=== PATIENT | male | born 1995 | race Caucasian/White ===

== ENCOUNTER 2016-12-02 17:35 | Emergency (ER) | payer OTHER ==
[~2016-12-02] VITALS: Ht 177.8 cm; Wt 66.0 kg
[2016-12-02 17:39] VITALS: Ht 177.8 cm; Wt 66.0 kg
[2016-12-02] MEDS ORDERED: SODIUM CHLORIDE 0.9% 1000ML 1,000 ML IV STA (17:48)
--- NOTE | 2016-12-02 17:49 | EMERGENCY ROOM VISIT NOTE ---
History Report prepared by Anna: Verena Vyas Under the Supervision of: Dr. Lazaro Medina D.O. First contact with patient: 17:42 Chief Complaint: CARDIAC ASSESSMENT Stated Complaint: CHEST PAIN Nursing Triage Summary: Pt c/o "a lot of PVC's...it's hard to breath" Symptoms for 2 hours. History of Present Illness The patient is a 21 year old male who presents to the Emergency Room with complaints of persistent palpitations. The patient states he started having episodes of palpitations earlier this afternoon. He states that he was at work when they started in the became worse when he was going home from work. He notices a skipping sensation with his heart. Intermittently it will also race. He denies having any chest pain or shortness of breath. The patient was started on medications for this and states he took a dose of the medication he was told to take by his doctor in the symptoms improved. He denies having any nausea or vomiting. He denies having any syncope or dizziness. He denies having any headaches fevers or chills. He states he has not been ill recently. He states that he did not have anything to eat today while he was at work and thinks that this could be part of the problem. At this time he states his symptoms are significantly improved. He states that he has had a full workup for this in the past and no definite cause was found. Source of History: patient Onset: 2 hours ago Position: chest Quality: other (palpitations ) Timing: other (persistent) Associated Symptoms: No SOB, No chest pain, No chills, No fevers, No headache, No nausea, No vomiting Note: He denies syncope. Review of Systems See HPI for pertinent positives & negatives. A total of 10 systems reviewed and were otherwise negative. Past Medical & Surgical Medical Problems: (1) Asthma, Unspecified (2) Esophageal Reflux Family History Patient reports no known family medical history. Social History Smoking Status: Never Smoker Smokeless Tobacco Use: No Alcohol Use: none Drug Use: none Marital Status: single Housing Status: lives with family Occupation Status: [employer] student Current/Historical Medications No Active Prescriptions or Reported Meds Allergies Coded Allergies: Cat Dander (Unverified Allergy, Mild, 10/07/16) Physical Exam Vital Signs Date Time Temp Pulse Resp B/P Pulse Ox O2 Delivery O2 Flow Rate FiO2 12/02/16 19:18 37.4 60 12 122/57 100 12/02/16 19:16 60 12 122/57 100 Room Air 12/02/16 18:28 61 12 100 Room Air 12/02/16 18:09 96 Room Air 12/02/16 18:05 99 Room Air 12/02/16 18:05 99 Room Air 12/02/16 18:00 85 12/02/16 17:41 99 Room Air 12/02/16 17:39 37.4 92 18 131/58 99 Room Air Physical Exam GENERAL: Patient is awake alert in no acute distress patient is resting comfortably and showing no signs of anxiety EYES: The conjunctivae are clear. The pupils are round and reactive. EARS, NOSE, MOUTH AND THROAT: The nose is without any evidence of any deformity. Mucous membranes are moist tongue is midline NECK: The neck is nontender and supple. RESPIRATORY: Normal respiratory effort is noted there is no evidence of wheezing rhonchi or rales CARDIOVASCULAR: Regular rate and rhythm noted there no murmurs rubs or gallops normal S1 normal S2 GASTROINTESTINAL: The abdomen is soft. Bowel sounds are present in all quadrants. Abdomen is nontender MUSCULOSKELETAL/EXTREMITIES: There is no evidence of gross deformity full range of motion is noted in the hips and shoulders SKIN: There is no obvious evidence of any rash. There are no petechiae, pallor or cyanosis noted. NEUROLOGIC: Patient is awake alert and oriented x3 strength is symmetric patellar reflexes are 2+ bilaterally Medical Decision & Procedures ER Provider Diagnostic Interpretation: X-ray results as stated below per interpretation by me and the radiologist. CHEST ONE VIEW PORTABLE CLINICAL HISTORY: Atypical chest pain COMPARISON STUDY: 10/07/2016 FINDINGS: The cardiac and mediastinal contours are normal. There is no evidence of focal pulmonary consolidation. There is no evidence of failure. No pleural effusions are visualized.[ IMPRESSION: No active disease in the chest. Electronically signed by: Oswaldo Valdes M.D. 12/02/2016 6:03 PM Dictated Date/Time: 12/02/2016 6:03 PM Laboratory Results 12/02/16 18:05 Red Blood Count 5.13, Mean Corpuscular Volume 88.3, Mean Corpuscular Hemoglobin 31.4, Mean Corpuscular Hemoglobin Concent 35.5, Mean Platelet Volume 8.1, Neutrophils (%) (Auto) 74.2, Lymphocytes (%) (Auto) 19.8, Monocytes (%) (Auto) 4.6, Eosinophils (%) (Auto) 0.9, Basophils (%) (Auto) 0.5, Neutrophils # (Auto) 4.84, Lymphocytes # (Auto) 1.29, Monocytes # (Auto) 0.30, Eosinophils # (Auto) 0.06, Basophils # (Auto) 0.03 12/02/16 18:05 Test 12/02/16 18:05 White Blood Count 6.52 K/uL (4.8-10.8) Red Blood Count 5.13 M/uL (4.7-6.1) Hemoglobin 16.1 g/dL (14.0-18.0) Hematocrit 45.3 % (42-52) Mean Corpuscular Volume 88.3 fL (80-100) Mean Corpuscular Hemoglobin 31.4 pg (25-34) Mean Corpuscular Hemoglobin Concent 35.5 g/dl (32-36) Platelet Count 326 K/uL (130-400) Mean Platelet Volume 8.1 fL (7.4-10.4) Neutrophils (%) (Auto) 74.2 % Lymphocytes (%) (Auto) 19.8 % Monocytes (%) (Auto) 4.6 % Eosinophils (%) (Auto) 0.9 % Basophils (%) (Auto) 0.5 % Neutrophils # (Auto) 4.84 K/uL (1.4-6.5) Lymphocytes # (Auto) 1.29 K/uL (1.2-3.4) Monocytes # (Auto) 0.30 K/uL (0.11-0.59) Eosinophils # (Auto) 0.06 K/uL (0-0.5) Basophils # (Auto) 0.03 K/uL (0-0.2) RDW Standard Deviation 39.3 fL (36.4-46.3) RDW Coefficient of Variation 12.3 % (11.5-14.5) Immature Granulocyte % (Auto) 0.0 % Immature Granulocyte # (Auto) 0.00 K/uL (0.00-0.02) Anion Gap 9.0 mmol/L (3-11) Est Creatinine Clear Calc Drug Dose 111.1 ml/min Estimated GFR () 126.5 Estimated GFR (Non- 109.2 BUN/Creatinine Ratio 6.3 (10-20) Calcium Level 9.3 mg/dl (8.5-10.1) Magnesium Level 2.4 mg/dl (1.8-2.4) Total Bilirubin 0.6 mg/dl (0.2-1) Direct Bilirubin 0.1 mg/dl (0-0.2) Aspartate Amino Transf (AST/SGOT) 9 U/L (15-37) Alanine Aminotransferase (ALT/SGPT) 17 U/L (12-78) Alkaline Phosphatase 97 U/L (45-117) Troponin I < 0.015 ng/ml (0-0.045) Total Protein 8.3 gm/dl (6.4-8.2) Albumin 4.6 gm/dl (3.4-5.0) Lipase 96 U/L (73-393) Thyroid Stimulating Hormone (TSH) 0.826 uIu/ml (0.300-4.500) Free Thyroxine 0.99 ng/dl (0.80-1.60) Laboratory results per my review. Medications Administered Medications (Trade) Dose Ordered Sig/Eliseo Route Start Time Stop Time Status Last Admin Dose Admin Sodium Chloride (Nss 1000ml) 1,000 ml @ 999 mls/hr Q1H1M STAT IV 12/02/16 17:48 12/02/16 18:48 DC 12/02/16 18:04 999 MLS/HR ECG Indication: chest pain Rate (beats per minute): 81 Rhythm: normal sinus Findings: RBBB (incomplete), no ectopy, other (no acute ST segment abnormalities ) Comparison ECG Date: October 07, 2016 Change: no significant change ED Course 1743: The patient was evaluated in room C6. A complete history and physical examination were performed. 1743: NSS 1,000 ml @ 999 mls/hr IV 1857: Upon reevaluation, the patient is doing well. I discussed the results and treatment plan with the patient. He verbalized agreement of the treatment plan. The patient was discharged home. Medical Decision Prior records/ancillary studies reviewed. Triage Nursing notes reviewed. The patient's history was concerning for palpitations. Differential diagnosis: Etiologies such as premature contractions, electrolyte abnormality, cardiac dysrhythmia, thyroid dysfunction, pulmonary embolism, infection, gastrointestinal, as well as others were entertained. The patient is a 21-year-old male who presented to the emergency department for an evaluation of palpitations. The patient has a history of PVCs. He takes medications for PVCs. He took the medication helped his symptoms significantly. Symptoms were essentially resolved upon arrival to the emergency department. I discussed the patient's laboratory and radiographic studies with him. He was treated with IV fluids in the emergency department. On subsequent reevaluation he was feeling much better. The patient was encouraged to rest and avoid any strenuous activity. He was also encouraged to continue all medications as prescribed. Is also encouraged return the emergency Department immediately if symptoms change worsen or the need arises. Otherwise she was encouraged to follow-up with his primary care physician to discuss the possibility that he may require further studies such as an echocardiogram or a Holter monitor to further evaluate the cause of the symptoms. Impression Primary Impression: Palpitations Additional Impression: PVCs (premature ventricular contractions) Scribe Attestation The scribe's documentation has been prepared under my direction and personally reviewed by me in its entirety. I confirm that the note above accurately reflects all work, treatment, procedures, and medical decision making performed by me. Departure Information Dispostion Home / Self-Care Prescriptions No Active Prescriptions or Reported Meds Referrals No Doctor, Assigned (PCP) Forms IMPORTANT VISIT INFORMATION, Work Instructions Patient Instructions ED Palpitations, My [facility] [address] Additional Instructions Continue all medications as prescribed. Follow-up with your family doctor for further evaluation. You may require an echocardiogram or a Holter monitor to further evaluate causing her palpitations. Return to emergency department immediately symptoms change worsen or the need arises. Problem Qualifiers
--- NOTE | 2016-12-02 18:04 | DIAGNOSTIC IMAGING REPORT ---
CHEST ONE VIEW PORTABLE CLINICAL HISTORY: Atypical chest pain COMPARISON STUDY: 10/07/2016 FINDINGS: The cardiac and mediastinal contours are normal. There is no evidence of focal pulmonary consolidation. There is no evidence of failure. No pleural effusions are visualized.[ IMPRESSION: No active disease in the chest. Electronically signed by: Oswaldo Valdes M.D. 12/02/2016 6:03 PM Dictated Date/Time: 12/02/2016 6:03 PM
[2016-12-02 18:05] VITALS: O2SAT 99
[2016-12-02 18:13] LABS: BASO % 0.5 %; BASO ABS # 0.03 K/uL (0-0.2); COMPLETE YES; EOS % 0.9 %; HEMATOCRIT 45.3 % (42-52); LYMPH % 19.8 %; LYMPH ABS # 1.29 K/uL (1.2-3.4); MEAN CELL VOLUME 88.3 fL (80-100); MEAN CORPUSCULAR HEMOGLOBIN 31.4 pg (25-34); MEAN CORPUSCULAR HGB CONC 35.5 g/dl (32-36); MEAN PLATELET VOLUME 8.1 fL (7.4-10.4); MONO % 4.6 %; NEUT % 74.2 %; PLATELET COUNT 326 K/uL (130-400); RED BLOOD COUNT 5.13 M/uL (4.7-6.1); WHITE BLOOD COUNT 6.52 K/uL (4.8-10.8)
[2016-12-02 18:30] LABS: ALT/SGPT 17 U/L (12-78); AST/SGOT 9 U/L (15-37); BLOOD UREA NITROGEN 6 mg/dl (7-18); BUN/CREATININE RATIO 6.3 (10-20); CALCIUM 9.3 mg/dl (8.5-10.1); CARBON DIOXIDE 29 mmol/L (21-32); CHLORIDE 105 mmol/L (98-107); CREATININE 0.99 mg/dl (0.60-1.40); GLUCOSE 100 mg/dl (70-99); MAGNESIUM 2.4 mg/dl (1.8-2.4); POTASSIUM 3.7 mmol/L (3.5-5.1); SODIUM 143 mmol/L (136-145)
[2016-12-02 18:39] LABS: ALKALINE PHOSPHATASE 97 U/L (45-117); THYROID STIMULATING HORMONE 0.826 uIu/ml (0.300-4.500)
[2016-12-02 19:18] VITALS: BP 122/57; PULSE 60; TEMP 37.4; O2SAT 100
== END 2016-12-02 19:18 | disposition home or self-care (01) ==
LOC: C.EDB 17:37 → C.EDC 19:18
DX: R00.2 Palpitations (principal); I49.3 Ventricular premature depolarization; J45.909 Unspecified asthma, uncomplicated; K21.9 Gastro-esophageal reflux disease without esophagitis

== ENCOUNTER 2016-12-26 19:04 | Emergency (ER) | payer OTHER ==
[~2016-12-26] VITALS: Ht 177.8 cm; Wt 66.0 kg
[2016-12-26 19:10] VITALS: TEMP 37.1; Ht 177.8 cm; Wt 66.0 kg
--- NOTE | 2016-12-26 21:07 | DIAGNOSTIC IMAGING REPORT ---
CHEST ONE VIEW PORTABLE HISTORY: cough COMPARISON: Chest 12/02/2016. FINDINGS: The lungs are clear. Cardiac silhouette is normal in size. No pleural effusions. No pneumothorax. IMPRESSION: No acute process. Electronically signed by: Michael Solano M.D. 12/26/2016 9:06 PM Dictated Date/Time: 12/26/2016 9:05 PM
--- NOTE | 2016-12-26 21:11 | EMERGENCY ROOM VISIT NOTE ---
History First contact with patient: 20:39 Chief Complaint: CARDIAC ASSESSMENT Stated Complaint: HEAVY FEELING IN CHEST - NAUTIOUS History of Present Illness The patient is a 21 year old male who presents to the Emergency Room with complaints of 5 day hx of epigastric discomfort following meals. He denies quinton pain but he reports a "bubble" like sensation. The symptoms typically resolved after a few minutes. Patient decided to come into ED today because the discomfort was more intense. As of today he also reports associated nausea without vomiting. Pt denies headache, change in vision, fevers, chest pain, shortness of breath, diarrhea, pain with urination, and melena. Review of Systems See HPI for pertinent positives & negatives. A total of 10 systems reviewed and were otherwise negative. Past Medical/Surgical History Medical Problems: (1) Asthma, Unspecified (2) Esophageal Reflux Family History Patient reports no known family medical history. Social History Smoking Status: Never Smoker Alcohol Use: none Drug Use: none Marital Status: single Housing Status: lives with family Occupation Status: [employer] student Current/Historical Medications No Active Prescriptions or Reported Meds Allergies Coded Allergies: Cat Dander (Unverified Allergy, Mild, 12/26/16) Physical Exam Vital Signs Date Time Temp Pulse Resp B/P Pulse Ox O2 Delivery O2 Flow Rate FiO2 12/26/16 22:32 67 20 119/59 98 Room Air 12/26/16 20:44 63 12/26/16 19:12 100 Room Air 12/26/16 19:10 37.1 119 16 127/67 100 Room Air Physical Exam GENERAL: alert, well appearing, well nourished, no distress, non-toxic EYE EXAM: normal conjunctiva, PERRL and EOM's grossly intact NECK: supple, no nuchal rigidity, no adenopathy, non-tender LUNGS: Clear to auscultation. Normal chest wall mechanics HEART: no murmurs, S1 normal and S2 normal ABDOMEN: abdomen soft, non-tender, normo-active bowel sounds, no masses, no rebound or guarding. BACK: Back is symmetrical on inspection and there is no deformity, no midline tenderness, no CVA tenderness. SKIN: no rashes and no bruising UPPER EXTREMITIES: upper extremities are grossly normal. LOWER EXTREMITIES: No pitting edema. Medical Decision & Procedures Laboratory Results 12/26/16 21:05 Red Blood Count 5.13, Mean Corpuscular Volume 87.9, Mean Corpuscular Hemoglobin 31.0, Mean Corpuscular Hemoglobin Concent 35.3, Mean Platelet Volume 8.2, Neutrophils (%) (Auto) 65.9, Lymphocytes (%) (Auto) 26.6, Monocytes (%) (Auto) 4.9, Eosinophils (%) (Auto) 1.8, Basophils (%) (Auto) 0.5, Neutrophils # (Auto) 5.10, Lymphocytes # (Auto) 2.06, Monocytes # (Auto) 0.38, Eosinophils # (Auto) 0.14, Basophils # (Auto) 0.04 12/26/16 21:05 Test 12/26/16 21:05 White Blood Count 7.74 K/uL (4.8-10.8) Red Blood Count 5.13 M/uL (4.7-6.1) Hemoglobin 15.9 g/dL (14.0-18.0) Hematocrit 45.1 % (42-52) Mean Corpuscular Volume 87.9 fL (80-100) Mean Corpuscular Hemoglobin 31.0 pg (25-34) Mean Corpuscular Hemoglobin Concent 35.3 g/dl (32-36) Platelet Count 365 K/uL (130-400) Mean Platelet Volume 8.2 fL (7.4-10.4) Neutrophils (%) (Auto) 65.9 % Lymphocytes (%) (Auto) 26.6 % Monocytes (%) (Auto) 4.9 % Eosinophils (%) (Auto) 1.8 % Basophils (%) (Auto) 0.5 % Neutrophils # (Auto) 5.10 K/uL (1.4-6.5) Lymphocytes # (Auto) 2.06 K/uL (1.2-3.4) Monocytes # (Auto) 0.38 K/uL (0.11-0.59) Eosinophils # (Auto) 0.14 K/uL (0-0.5) Basophils # (Auto) 0.04 K/uL (0-0.2) RDW Standard Deviation 39.3 fL (36.4-46.3) RDW Coefficient of Variation 12.1 % (11.5-14.5) Immature Granulocyte % (Auto) 0.3 % Immature Granulocyte # (Auto) 0.02 K/uL (0.00-0.02) Anion Gap 8.0 mmol/L (3-11) Est Creatinine Clear Calc Drug Dose 122.2 ml/min Estimated GFR () 142.0 Estimated GFR (Non- 122.5 BUN/Creatinine Ratio 13.7 (10-20) Calcium Level 9.3 mg/dl (8.5-10.1) Total Bilirubin 0.5 mg/dl (0.2-1) Direct Bilirubin 0.1 mg/dl (0-0.2) Aspartate Amino Transf (AST/SGOT) 20 U/L (15-37) Alanine Aminotransferase (ALT/SGPT) 18 U/L (12-78) Alkaline Phosphatase 100 U/L (45-117) Total Protein 8.5 gm/dl (6.4-8.2) Albumin 4.6 gm/dl (3.4-5.0) Lipase 99 U/L (73-393) Medical Decision Differential diagnoses includes but is not limited to gastritis, peptic ulcer disease, GERD, gallbladder disease, pancreatitis, small bowel obstruction, acute coronary syndrome, pericarditis, ischemic bowel, irritable bowel disease, irritable bowel syndrome, appendicitis, diverticulitis, malignancy, hernia, urinary tract infection, torsion,, perforation, trauma, infectious. 21 yo M p/w with 5 day hx of progressive epigastric discomfort following meals.VSS. CBC BMP,LFTs, bilirubin unremarkable. Lipase neg Abdominal Ultrasound was unremarkable. EKG was unremarkable. Chest x-ray was unremarkable. Patient Discharged with followup to PCP within 1-2 days Impression Primary Impression: Epigastric discomfort Departure Information Dispostion Home / Self-Care Condition GOOD Prescriptions No Active Prescriptions or Reported Meds Referrals No Doctor, Assigned (PCP) Patient Instructions My [facility] Resident Tracking Resident Involvement: Resident Care Provided Care Provided: Adult ED
[2016-12-26 21:24] LABS: BASO % 0.5 %; BASO ABS # 0.04 K/uL (0-0.2); COMPLETE YES; EOS % 1.8 %; HEMATOCRIT 45.1 % (42-52); IG% 0.3 %; LYMPH % 26.6 %; LYMPH ABS # 2.06 K/uL (1.2-3.4); MEAN CELL VOLUME 87.9 fL (80-100); MEAN CORPUSCULAR HGB CONC 35.3 g/dl (32-36); MEAN PLATELET VOLUME 8.2 fL (7.4-10.4); MONO % 4.9 %; NEUT % 65.9 %; PLATELET COUNT 365 K/uL (130-400); RED BLOOD COUNT 5.13 M/uL (4.7-6.1); WHITE BLOOD COUNT 7.74 K/uL (4.8-10.8)
[2016-12-26 21:45] LABS: BUN/CREATININE RATIO 13.7 (10-20); CALCIUM 9.3 mg/dl (8.5-10.1); CREATININE 0.9 mg/dl (0.60-1.40); POTASSIUM 3.7 mmol/L (3.5-5.1)
--- NOTE | 2016-12-26 22:08 | DIAGNOSTIC IMAGING REPORT ---
ABDOMINAL ULTRASOUND COMPLETE HISTORY: epigastric pain. COMPARISON: Abdominal ultrasound 07/15/2015. FINDINGS: Pancreas: The pancreatic tail is obscured by overlying bowel gas. The remaining portions of the pancreas are within normal limits. Liver: Unremarkable. Gallbladder: No gallbladder wall thickening. No gallstones. CBD: 6 mm. Kidneys: No hydronephrosis. Spleen: Normal in size. Aorta: Normal in caliber. IVC: Patent. IMPRESSION: No significant abnormality identified within the within the abdomen. Electronically signed by: Michael Solano M.D. 12/26/2016 10:06 PM Dictated Date/Time: 12/26/2016 10:04 PM
[2016-12-26 22:32] VITALS: BP 119/59; PULSE 67; O2SAT 98
--- NOTE | 2016-12-27 01:56 | EMERGENCY ROOM VISIT NOTE ---
History Report prepared by Anna: Merlyn Bernardo Under the Supervision of: Dr. Judson Em D.O. First contact with patient: 20:38 Chief Complaint: CARDIAC ASSESSMENT Stated Complaint: HEAVY FEELING IN CHEST - NAUTIOUS History of Present Illness The patient is a 21 year old male who presents to the Emergency Room with complaints of intermittent epigastric abdominal pain beginning three days ago. Patient states that the pain feels like a "bubbling sensation". He claims that since it started, the sensation has increased in frequency and worsened. Patient also complains of nausea, chills, and feeling lightheaded starting today. He claims that his abdominal pain worsens when lying flat and is occasionally alleviated with Tums. He states that his last bowel movement was this morning. Patient denies pain while urinating. He claims his abdominal pain does not radiate and he has no past history of symptoms, surgeries, drinking, cancer, hemoptysis, swelling of his legs, and blood clots. Patient has no history of diabetes, hypertension, hyperlipidemia, CAD or smoking. 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 He notes that he also has been having occasional palpitations since Sunday. Source of History: patient Onset: three days ago Position: abdomen (epigastric) Quality: other ("bubbling sensation") Timing: intermittent Modifying Factors (Worsening): other (lying flat) Modifying Factors (Relieving): other (Tums) Associated Symptoms: + chills, + nausea, No urinary symptoms Note: The patient also complains of lightheadedness and palpitations. Review of Systems See HPI for pertinent positives & negatives. A total of 10 systems reviewed and were otherwise negative. Past Medical & Surgical Medical Problems: (1) Asthma, Unspecified (2) Esophageal Reflux Family History Patient reports no known family medical history. Social History Smoking Status: Never Smoker Alcohol Use: none Drug Use: none Marital Status: single Housing Status: lives with family Occupation Status: [employer] student Current/Historical Medications No Active Prescriptions or Reported Meds Allergies Coded Allergies: Cat Dander (Unverified Allergy, Mild, 12/26/16) Physical Exam Vital Signs Date Time Temp Pulse Resp B/P Pulse Ox O2 Delivery O2 Flow Rate FiO2 12/26/16 22:32 67 20 119/59 98 Room Air 12/26/16 20:44 63 12/26/16 19:12 100 Room Air 12/26/16 19:10 37.1 119 16 127/67 100 Room Air Physical Exam GENERAL: alert, well appearing, well nourished, no distress, non-toxic, sitting up in bed. EYE EXAM: normal conjunctiva. OROPHARYNX: no exudate, no erythema, lips, buccal mucosa, and tongue normal and mucous membranes are moist NECK: supple, no nuchal rigidity, no adenopathy, non-tender LUNGS: Clear to auscultation. Normal chest wall mechanics HEART: no murmurs, S1 normal and S2 normal ABDOMEN: abdomen soft, non-tender, normo-active bowel sounds, no masses, no rebound or guarding. BACK: Back is symmetrical on inspection and there is no deformity, no midline tenderness, no CVA tenderness. SKIN: no rashes and no bruising UPPER EXTREMITIES: upper extremities are grossly normal. LOWER EXTREMITIES: No pitting edema. NEURO EXAM: Normal sensorium, cranial nerves II-XII grossly intact, normal speech, no gross weakness of arms, no gross weakness of legs. Medical Decision & Procedures ER Provider Diagnostic Interpretation: Xray results per the radiologist and my interpretation. Other results have been interpreted by the radiologist and reviewed by me. ABDOMINAL ULTRASOUND COMPLETE FINDINGS: Pancreas: The pancreatic tail is obscured by overlying bowel gas. The remaining portions of the pancreas are within normal limits. Liver: Unremarkable. Gallbladder: No gallbladder wall thickening. No gallstones. CBD: 6 mm. Kidneys: No hydronephrosis. Spleen: Normal in size. Aorta: Normal in caliber. IVC: Patent. IMPRESSION: No significant abnormality identified within the within the abdomen. Electronically signed by: Michael Solano M.D. 12/26/2016 10:06 PM Dictated Date/Time: 12/26/2016 10:04 PM CHEST ONE VIEW PORTABLE HISTORY: cough COMPARISON: Chest 12/02/2016. FINDINGS: The lungs are clear. Cardiac silhouette is normal in size. No pleural effusions. No pneumothorax. IMPRESSION: No acute process. Electronically signed by: Michael Solano M.D. 12/26/2016 9:06 PM Dictated Date/Time: 12/26/2016 9:05 PM Laboratory Results 12/26/16 21:05 Red Blood Count 5.13, Mean Corpuscular Volume 87.9, Mean Corpuscular Hemoglobin 31.0, Mean Corpuscular Hemoglobin Concent 35.3, Mean Platelet Volume 8.2, Neutrophils (%) (Auto) 65.9, Lymphocytes (%) (Auto) 26.6, Monocytes (%) (Auto) 4.9, Eosinophils (%) (Auto) 1.8, Basophils (%) (Auto) 0.5, Neutrophils # (Auto) 5.10, Lymphocytes # (Auto) 2.06, Monocytes # (Auto) 0.38, Eosinophils # (Auto) 0.14, Basophils # (Auto) 0.04 12/26/16 21:05 Test 12/26/16 21:05 White Blood Count 7.74 K/uL (4.8-10.8) Red Blood Count 5.13 M/uL (4.7-6.1) Hemoglobin 15.9 g/dL (14.0-18.0) Hematocrit 45.1 % (42-52) Mean Corpuscular Volume 87.9 fL (80-100) Mean Corpuscular Hemoglobin 31.0 pg (25-34) Mean Corpuscular Hemoglobin Concent 35.3 g/dl (32-36) Platelet Count 365 K/uL (130-400) Mean Platelet Volume 8.2 fL (7.4-10.4) Neutrophils (%) (Auto) 65.9 % Lymphocytes (%) (Auto) 26.6 % Monocytes (%) (Auto) 4.9 % Eosinophils (%) (Auto) 1.8 % Basophils (%) (Auto) 0.5 % Neutrophils # (Auto) 5.10 K/uL (1.4-6.5) Lymphocytes # (Auto) 2.06 K/uL (1.2-3.4) Monocytes # (Auto) 0.38 K/uL (0.11-0.59) Eosinophils # (Auto) 0.14 K/uL (0-0.5) Basophils # (Auto) 0.04 K/uL (0-0.2) RDW Standard Deviation 39.3 fL (36.4-46.3) RDW Coefficient of Variation 12.1 % (11.5-14.5) Immature Granulocyte % (Auto) 0.3 % Immature Granulocyte # (Auto) 0.02 K/uL (0.00-0.02) Anion Gap 8.0 mmol/L (3-11) Est Creatinine Clear Calc Drug Dose 122.2 ml/min Estimated GFR () 142.0 Estimated GFR (Non- 122.5 BUN/Creatinine Ratio 13.7 (10-20) Calcium Level 9.3 mg/dl (8.5-10.1) Total Bilirubin 0.5 mg/dl (0.2-1) Direct Bilirubin 0.1 mg/dl (0-0.2) Aspartate Amino Transf (AST/SGOT) 20 U/L (15-37) Alanine Aminotransferase (ALT/SGPT) 18 U/L (12-78) Alkaline Phosphatase 100 U/L (45-117) Total Protein 8.5 gm/dl (6.4-8.2) Albumin 4.6 gm/dl (3.4-5.0) Lipase 99 U/L (73-393) Laboratory results per my review. ECG Indication: abdominal pain Rate (beats per minute): 67 Rhythm: sinus rhythm Findings: other (normal axis. sinus arrhythmia. J point elevation in lead VII.) ED Course ED COURSE: Vital signs were reviewed and appear normal. The patients medical record was reviewed The above diagnostic studies were performed and reviewed. ED treatments and interventions as stated above. 2040: The patient was evaluated in room C3. A complete history and physical examination was performed. 2229: Upon reevaluation, the patient is resting comfortably. I discussed my findings with the patient and he understands and agrees with the treatment plan. Based on the patients age, coexisting illnesses, exam and lab findings the decision to treat as an outpatient was made. The patient remained stable while under my care. The patient appeared well at the time of discharge. Medical Decision Differential diagnoses includes but is not limited to gastritis, peptic ulcer disease, GERD, gallbladder disease, pancreatitis, small bowel obstruction, acute coronary syndrome, pericarditis, ischemic bowel, irritable bowel disease, irritable bowel syndrome, appendicitis, diverticulitis, malignancy, hernia, urinary tract infection, torsion, perforation, trauma, infectious. Patient is a 21-year-old male who presents the ER with no significant cardiac or PE risk factors for abdominal pain. He notes it's worse with lying flat. He has been present for the past 5 days. He notes that he feels like he is a bubble in his abdomen. Abdominal exam is unremarkable. CBC along with BMP, LFTs, bilirubin and lipase were unremarkable. He had no urinary symptoms. Ultrasound was unremarkable. EKG was unremarkable. Chest x-ray was unremarkable. Patient was updated at bedside. This is clearly abdominal in nature. Following a benign workup is instructed follow-up his primary care doctor.Discussed with Pt concerning signs and symptoms to watch out for. Pt was instructed to follow up with their PCP and discussed with the patient their option to return to the ED at anytime for persistent or worsening symptoms. The appropriate anticipatory guidance and out-patient management, including indications for return to the emergency department, were explained at length to the patient and understood. Impression Primary Impression: Epigastric abdominal pain Scribe Attestation The scribe's documentation has been prepared under my direction and personally reviewed by me in its entirety. I confirm that the note above accurately reflects all work, treatment, procedures, and medical decision making performed by me. Departure Information Dispostion Home / Self-Care Prescriptions No Active Prescriptions or Reported Meds Referrals No Doctor, Assigned (PCP) Forms IMPORTANT VISIT INFORMATION Patient Instructions Abdominal Pain - [facility], [place], [facility] Additional Instructions Follow up with Primary care provider 1-2 days If Recurrence or worsening of symptoms call clinic or come back to Emergency Dept. If Fever >100.4 , Chest pain, SOB, abdominal pain, call clinic or come back to Emergancy Dept.
== END 2016-12-26 22:44 | disposition home or self-care (01) ==
LOC: C.EDB 19:06 → C.EDC 22:44
DX: R10.13 Epigastric pain (principal); R42 Dizziness and giddiness; R11.2 Nausea with vomiting, unspecified; J45.909 Unspecified asthma, uncomplicated

== ENCOUNTER 2017-02-04 01:56 | Emergency (ER) | payer OTHER ==
[~2017-02-04] VITALS: Ht 174 cm; Wt 65.1 kg
[2017-02-04 02:02] VITALS: TEMP 36.8; Ht 174 cm; Wt 65.1 kg
--- NOTE | 2017-02-04 02:19 | EMERGENCY ROOM VISIT NOTE ---
History Report prepared by Venuibtammy: Mahad Talamantes Under the Supervision of: Dr. Davi Garcia D.O. First contact with patient: 02:09 Chief Complaint: IRREGULAR HEARTBEAT Stated Complaint: PVC Nursing Triage Summary: Patient ambulatory to triage, states "I am having a lot of PVCs, especially when I try to lay down on my side. It is making me feel like I can't breathe." History of Present Illness The patient is a 21 year old male who presents to the Emergency Room with complaints of recurrent palpitations that have been occurring since he went to bed tonight. The patient has a history of PVCs, and notes that these palpitations feel similar. He notices the beats when he takes a deep breath. The patient has been staying hydrated. He is physically active. Source of History: patient Onset: tonight Position: other (heart) Quality: other (palpitations) Timing: other (recurrent) Modifying Factors (Worsening): breathing (deep) Review of Systems See HPI for pertinent positives and negatives. A total of ten systems were reviewed and were otherwise negative. Past Medical & Surgical Medical Problems: (1) Asthma, Unspecified (2) Esophageal Reflux Family History Patient reports no known family medical history. Social History Smoking Status: Never Smoker Alcohol Use: none Drug Use: none Marital Status: single Housing Status: lives with family Occupation Status: [employer] student Current/Historical Medications No Active Prescriptions or Reported Meds Allergies Coded Allergies: Cat Dander (Unverified Allergy, Mild, 02/04/17) Physical Exam Vital Signs Date Time Temp Pulse Resp B/P Pulse Ox O2 Delivery O2 Flow Rate FiO2 02/04/17 02:02 97 Room Air 02/04/17 02:02 36.8 53 16 115/68 97 Room Air Physical Exam GENERAL: Awake, alert, well-appearing, in no distress HENT: Normocephalic, atraumatic. Oropharynx unremarkable. EYES: Normal conjunctiva. Sclera non-icteric. NECK: Supple. No nuchal rigidity. FROM. No JVD. RESPIRATORY: Clear to auscultation. CARDIAC: Regular rate, normal rhythm. Extremities warm and well perfused. Pulses equal. ABDOMEN: Soft, non-distended. No tenderness to palpation. No rebound or guarding. No masses. RECTAL: Deferred. MUSCULOSKELETAL: Chest examination reveals no tenderness. The back is symmetrical on inspection without obvious abnormality. There is no CVA tenderness to palpation. No joint edema. LOWER EXTREMITIES: Calves are equal size bilaterally and non-tender. No edema. No discoloration. NEURO: Normal sensorium. No sensory or motor deficits noted. SKIN: No rash or jaundice noted. Medical Decision & Procedures ECG Indication: palpitations Rate (beats per minute): 65 Rhythm: sinus with SA Findings: other (no PVC or PAC, normal axis, normal intervals) ED Course 0214: The patient was evaluated in room A11b. A complete history and physical exam was performed. 0230: Discussed the findings with him. He verbalized understanding. The patient is ready for discharge. Medical Decision Differential diagnosis includes anxiety, palpitations, cardiac arrhythmia. S2 no distress patient has sinus arrhythmia there is no obvious PVCs PACs V. tach or any cardiac instability. Impression Primary Impression: Palpitations Scribe Attestation The scribe's documentation has been prepared under my direction and personally reviewed by me in its entirety. I confirm that the note above accurately reflects all work, treatment, procedures, and medical decision making performed by me. Departure Information Dispostion Home / Self-Care Prescriptions No Active Prescriptions or Reported Meds Referrals No Doctor, Assigned (PCP) Forms HOME CARE DOCUMENTATION FORM, IMPORTANT VISIT INFORMATION Patient Instructions ED Palpitations, [facility]
[2017-02-04 02:41] VITALS: BP 110/62; PULSE 60; O2SAT 97
== END 2017-02-04 02:42 | disposition home or self-care (01) ==
LOC: C.EDB 01:57 → C.EDA 02:42
DX: R00.2 Palpitations (principal); J45.909 Unspecified asthma, uncomplicated; K21.9 Gastro-esophageal reflux disease without esophagitis

== ENCOUNTER → 2017-07-25 | Outpatient (CLI) | payer OTHER ==
[2017-07-26 15:19] LABS: CHLAMYDIA TRACH RNA*** NOT DETECTED (NOT DETECTED); GC (NEIS GONORRHOEAE)RNA** NOT DETECTED (NOT DETECTED)
== END | disposition home or self-care (01) ==
LOC: C.LABBFT 10:45
PROVIDERS: ATTEND Pediatrics
DX: R30.0 Dysuria (principal)